=== PATIENT | male | born 1955 | race Caucasian/White ===

== ENCOUNTER 2017-12-16 12:48 | Inpatient (IN) | payer OTHER ==
[~2017-12-16] VITALS: Ht 167.6 cm; Wt 95.3 kg
--- NOTE | ~2017-12-16 | EKG ---
[place] [address] [facility] [place] [address] ELECTROCARDIOGRAM REPORT Name: JEROD PEARCE Kalpesh Room #: 220-P ADM IN M.R.#: [id number] Admission: 12/16/17 Attend Phys: Alphonso Dixon MD Discharge: Date of : 55 Report #: [id number] THIS REPORT FOR: //name// [facility] ED Test Date: 2017-12-16 Test Time: 13:35:59 Pat Name: JEROD PEARCE Department: Room: 220 Gender: M [employer]: storm : 1955 Requested By: Sadie Treviño Order Number: [id number] MD: Domingo Magana Measurements Intervals [place] Rate: 77 P: 16 IL: 203 QRS: -33 QRSD: 143 T: 81 QT: 417 QTc: 472 Interpretive Statements Sinus rhythm Left bundle branch block Baseline wander in lead(s) V2 No previous ECG available for comparison Electronically Signed On 12-18-2017 8:27:14 CDT by Domingo Magana [email or web address] <ELECTRONICALLY SIGNED> By: Domingo Magana MD, [facility] 12/18/17 0827 Domingo Magana MD, FAC /EPI
--- NOTE | ~2017-12-16 | HC ---
[facility] [place] [address] CONSULTATION Name: JEROD PEARCE Room #: 220-P [facility] IN M.R.#: [id number] Admission: 12/16/17 Attend Phys: Alphonso Dixon MD Discharge: 12/19/17 Date of : 55 Report #: [id number] THIS REPORT FOR: //name// CC: Alphonso Dixon DATE OF SERVICE: 12/17/2017 TYPE OF REPORT: Nephrology consultation. REASON FOR CONSULTATION: Elevated creatinine. The patient has CKD and diabetic nephropathy. HISTORY OF PRESENT ILLNESS: This is a 62-year-old male who has had a cough that has been going on for the past 1-2 months. It had worsened. He had a previous evaluation with Dr. Dixon. Findings included an elevated right hemidiaphragm. He went to urgent care yesterday to get something for the cough and when I checked and oxygen saturation level, it was low. He was told to come to the Emergency Room here. He has had oxygen levels, generally 94%-96% since arrival here. He is on some supplemental oxygen. He was admitted and was started on broad-spectrum antibiotics. He has had no fever. From a renal standpoint, the patient has previously documented diabetic nephropathy. He has had diabetes mellitus dating back about 15 years as well as some hypertension. He has been evaluated in the office previously and has been followed on an annual basis. He runs a baseline creatinine level of about 1.5. He has mild proteinuria, totaling 100-200 mg. He has been maintained on an angiotensin receptor angela and some hydrochlorothiazide with good blood pressure and stable parameters. At this point, he reports no nonsteroidal use. No other nephrotoxic exposures that I can find. He is trying to follow a low-sodium diet. His weight has been decreasing. No difficulty voiding urine. No change in his urine appearance. On presentation in the Emergency Room, his BUN was 35 and creatinine was 2.1, which is higher than his baseline. No urinalysis was done. Additional abnormal labs include a total protein 7.4 and albumin 3.1. Looking back in the office records, his albumin has been more in the 3.7-3.9 range over the past couple of years. PAST MEDICAL HISTORY: Diabetes mellitus dating back 15 years or so; hypertension, similar duration and hyperlipidemia. Also, history of some hemochromatosis. MEDICATIONS: On admission, fluticasone nasal inhaler, aspirin 81 mg daily, Bystolic 10 mg daily, irbesartan 300 mg with hydrochlorothiazide 25 mg daily (recently changed from valsartan due to recall of the medication), Levemir 36 units b.i.d., simvastatin 20 mg daily and short-acting insulin. [address] [address] CONSULTATION Name: RAMSESJEROD Room #: 220-P [facility] IN M.R.#: [id number] Admission: 12/16/17 Attend Phys: Alphonso Dixon MD Discharge: 12/19/17 Date of : 55 Report #: [id number] ALLERGIES: VICTOZA. FAMILY HISTORY: Father is with heart failure and diabetes. Mother is with Parkinson's. One brother has diabetes. One sister breast cancer. One sister with hemochromatosis. SOCIAL HISTORY: The patient is , accompanied by his at this time. He lives in [place], [place]. 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 REVIEW OF SYSTEMS: Persistent cough over the past couple of months. He does not really notice much when he is supine. He states he normally bends over anteriorly. He is unaware of fevers, chills or sweats. Appetite has been the same. Tries to reduce portions of his diet but is not on any other more strict dietary restrictions. Has not noticed edema. No difficulty voiding urine. No chest pain or palpitations, nausea, vomiting or change in bowel habits. PHYSICAL EXAMINATION: GENERAL: Somewhat overweight 62-year-old male oxygen in place. No current distress at this time. VITAL SIGNS: Blood pressure 150/88, heart rate is 101, respiratory rate 20, oxygen saturation 95% and temperature 98.8. He had transient fever last night to 99.8. Height 5 feet 6 inches and weight 210 pounds. HEENT: Shows pupils are equal and reactive. Sclerae nonicteric. Oral mucosa is negative. NECK: Supple without adenopathy, thyromegaly, JVD or bruit. CHEST: Fairly clear bilaterally. Some decrease in breath sounds in the right base, commensurate with his elevated right hemidiaphragm. BACK: Shows no CVA tenderness. HEART: Has a regular rate and rhythm. ABDOMEN: Protuberant. Bowel sounds present. Soft and nontender. EXTREMITIES: Show no peripheral edema. He has 2+ peripheral pulses. LABORATORY DATA: Sodium 142, potassium 4.0, chloride 103, bicarbonate 28, BUN 35, creatinine 2.1 and glucose 181. Calcium 8.6, total protein 7.1 and albumin 3.1. Normal liver function tests. White count 12.5; hemoglobin 14.3; hematocrit 42.6 and platelets 211,000. Differential on the white count 76 neutrophils, 13 lymphs, 8 monos and 2 eosinophils. Blood gas on admission pH 7.41, pCO2 of 38.3, pO2 of 75.7 with a sat of 93% on 2 liters per nasal cannula. RADIOLOGICAL DATA: Chest x-ray shows an elevated right hemidiaphragm. ASSESSMENT: 1. Chronic kidney disease stage 3 due to diabetic nephropathy. Creatinine has been stable over recent years. Proteinuria has been mild. He needs to back on [facility] [address] [place] [address] CONSULTATION Name: JEROD PEARCE Kalpesh Room #: 220-P [facility] IN .R.#: [id number] Admission: 12/16/17 Attend Phys: Alphonso Dixon MD Discharge: 12/19/17 Date of : 55 Report #: [id number] his angiotensin receptor angela and hydrochlorothiazide. Creatinine level is up, slightly high at this time to 2.1. He got a liter of fluids overnight. I expect he will be back at that level and we remeasure again tomorrow. In the interim, we need to check a urine for urinalysis and a urine protein creatinine ratio. 2. Persistent cough. Now on broad-spectrum antibiotics and supplemental oxygen, as he has been mildly hypoxemic. Chest x-ray is as noted above. 3. New change in the serum albumin level with a low albumin and abnormal globulin-albumin ratio. I reviewed her workup at the office about 5 years ago and he had a normal kappa lambda light chain ratio at this time. We will recheck that as this appears to be a new change. 4. Longstanding diabetes mellitus, on insulin. Weight has been going up and he needs better control of that aspect of things. PLAN: 1. Can stop his IV fluids. 2. Get him back on his angiotensin receptor angela and hydrochlorothiazide. 3. Check urinalysis and urine protein creatinine ratio. 4. Check kappa lambda light chain ratio. 5. We will follow along the care of this patient. <ELECTRONICALLY SIGNED> By: Phuc Goldberg MD 12/20/17 1200 1144 0015 Felipe Granados MD /nt
[2017-12-16 13:00] VITALS: BP 157/80
[2017-12-16] MEDS ORDERED: ASPIR 8181 MG PO (13:15)
[2017-12-16] MEDS ORDERED: BREO ELLIPTA 11 EACH INH (13:15)
[2017-12-16] MEDS ORDERED: BYSTOLIC20 MG PO (13:16)
[2017-12-16] MEDS ORDERED: HUMALOG100 UNIT/1 SUBQ (13:17)
[2017-12-16] MEDS ORDERED: HYDROCHLOROTHIA25 M2 PO (13:17)
[2017-12-16] MEDS ORDERED: AVAPRO300 MG PO (13:17)
[2017-12-16] MEDS ORDERED: ZOCOR20 MG PO (13:18)
[2017-12-16] MEDS ORDERED: LEVEMIR SUBQ (13:18)
[2017-12-16 13:45] LABS: ABSOLUTE NEUTROPHILS 9.5 thou/uL (1.4-8.2); BASOPHILS 0.8 % (0.0-2.0); EOSINOPHILS 2.5 % (0.0-3.0); HEMATOCRIT 42.6 % (42.0-52.0); HEMOGLOBIN 14.3 gm/dL (14.0-18.0); LYMPHOCYTES 13.1 % (24.0-44.0); MCH 30.7 pg (26.0-34.0); MCHC 33.5 g/dL (28.0-37.0); MCV 91.8 fL (80.0-100.0); PLATELET COUNT 211 thou/uL (150-400); POLYS 75.6 % (36.0-66.0); RBC 4.64 mil/uL (4.50-6.00); RDW 13.2 % (10.5-14.5); WBC 12.5 thou/uL (4.0-11.0)
[2017-12-16 13:52] LABS: ANION GAP 11 mmol/L (7-16); BUN 35 mg/dL (7-18); CALCIUM 8.6 mg/dL (8.5-10.1); CHLORIDE 103 mmol/L (98-107); CO2 28 mmol/L (21-32); CREATININE 2.1 mg/dL (0.7-1.3); GLUCOSE 181 mg/dL (74-106); SODIUM 142 mmol/L (136-145)
[2017-12-16 14:01] LABS: ALBUMIN 3.1 g/dL (3.4-5.0); SGOT 22 U/L (15-37); SGPT 28 U/L (30-65); TOTAL BILIRUBIN 0.6 mg/dL (<0.1-1.0); TOTAL PROTEIN 7.4 g/dL (6.4-8.2); TROPONIN-I <0.06 ng/mL (<0.06)
[2017-12-16 14:54] LABS: BE(vivo) -0.4 mmol/L (-2 to +3); PCO2 38.3 mmHg (35.0-45.0); PO2 75.7 mmHg (80.0-100.0); pH 7.414 (7.360-7.450); sO2 95.4 % (92.0-98.0)
[2017-12-16 17:29] VITALS: BP 123/69
[2017-12-16 18:24] VITALS: BP 145/71
[2017-12-16] MEDS ORDERED: FLONASE 0.05%50 MCG NASAL (19:51)
[2017-12-16 20:00] VITALS: BP 126/63
[2017-12-17 04:00] VITALS: BP 163/85
[2017-12-17 08:38] VITALS: BP 150/88
[2017-12-17 16:08] LABS: URINE BILIRUBIN NEGATIVE (Negative); URINE BLOOD TRACE (Negative); URINE CLARITY CLEAR; URINE COLOR YELLOW; URINE GLUCOSE-RANDOM* 3+ (Negative); URINE KETONES NEGATIVE (Negative); URINE LEUKOCYTES NEGATIVE (Negative); URINE NITRITE NEGATIVE (Negative); URINE PROTEIN (DIPSTICK) NEGATIVE (Negative); URINE UROBILINOGEN 0.2 E.U./dl (0.2-1.0)
[2017-12-17 16:17] LABS: PROT/CREAT RATIO 0.2; URINE CREATININE-RANDOM* 54.5 mg/dL; URINE PROTEIN-RANDOM* 10.6 mg/dL (<11.9)
[2017-12-17 17:06] VITALS: BP 150/71
[2017-12-17 20:25] VITALS: BP 132/70
[2017-12-18 06:52] LABS: ALBUMIN 2.7 g/dL (3.4-5.0); CALCIUM 8.7 mg/dL (8.5-10.1); CREATININE 1.7 mg/dL (0.7-1.3); PHOSPHORUS 3.6 mg/dL (2.5-4.9); POTASSIUM 4.1 mmol/L (3.5-5.1)
[2017-12-18 08:07] VITALS: BP 118/58
[2017-12-18 23:40] VITALS: BP 133/70
[2017-12-19 07:15] VITALS: BP 132/59
[2017-12-19 13:07] LABS: KAPPA FREE LIGHT CHAINS 19.6 mg/L (3.3-19.4); KAPPA/LAMBDA RATIO 0.4 (0.26-1.65); LAMBDA FREE LIGHT CHAINS 49.6 mg/L (5.7-26.3)
[2017-12-19] MEDS ORDERED: CEFDINIR300 MG PO (14:26)
[2017-12-19 17:33] VITALS: BP 132/59
== END 2017-12-19 17:40 | disposition home or self-care (01) | DRG 871 ==
LOC: ER 12:48 → SICU 16:48 → EROBS 16:48 → 4E 18:40 → SICU 12-17 16:27
PROVIDERS: Internal Medicine Nephrology; Physician Assistant
DX: A41.9 Sepsis, unspecified organism (principal); J96.01 Acute respiratory failure with hypoxia; N17.9 Acute kidney failure, unspecified; J98.11 Atelectasis; E78.00 Pure hypercholesterolemia, unspecified; E11.22 Type 2 diabetes mellitus with diabetic chronic kidney disease; I12.9 Hypertensive chronic kidney disease with stage 1 through stage 4 chronic kidney disease, or unspecified chronic kidney disease; Z77.22 Contact with and (suspected) exposure to environmental tobacco smoke (acute) (chronic); N18.3 Chronic kidney disease, stage 3 (moderate); J40 Bronchitis, not specified as acute or chronic; E11.65 Type 2 diabetes mellitus with hyperglycemia; E11.40 Type 2 diabetes mellitus with diabetic neuropathy, unspecified; E78.5 Hyperlipidemia, unspecified; Z82.49 Family history of ischemic heart disease and other diseases of the circulatory system; Z83.3 Family history of diabetes mellitus; Z88.8 Allergy status to other drugs, medicaments and biological substances; Z79.4 Long term (current) use of insulin; Z79.82 Long term (current) use of aspirin; Z79.899 Other long term (current) drug therapy; Z81.8 Family history of other mental and behavioral disorders; Z80.3 Family history of malignant neoplasm of breast; Z84.89 Family history of other specified conditions
CPT/HCPCS: 10183; 15002